=== PATIENT | male | born 1995 | race Caucasian/White ===

== ENCOUNTER 2017-12-09 11:23 | Emergency (ER) | payer OTHER ==
[2017-12-09] MEDS ORDERED: Diphtheria,Pertussis(Acell),Tetanus Vaccine 0.5 ML Syringe IM ONE (11:36)
[2017-12-09] MEDS ORDERED: ceFAZolin 1,000 MG VIAL IM ONE (11:36)
[2017-12-09] MEDS ORDERED: Bacitracin Oint 1 GM U/D Packet TOP ONE (11:37)
[2017-12-09] MEDS ORDERED: Lidocaine 1% 20 ML MDV INJECT ONE (11:39)
--- NOTE | 2017-12-09 11:39 | EDM.PDOC ---
ED HPI GENERAL MEDICAL PROBLEM - General Chief Complaint: Laceration Stated Complaint: PT CUT THE TIP OF FINGER ON LT HAND Time Seen by Provider: 12/09/17 11:26 - History of Present Illness INITIAL COMMENTS - FREE TEXT/NARRATIVE: HISTORY AND PHYSICAL: History of present illness: The patient is a healthy 22-year-old male who is unsure of his last tetanus shot who presents from work after he injured the tip of his left index finger using a sledgehammer. He said he was hitting an area very hard with a sledgehammer and his finger somehow got trapped between another object and the thing he was hitting and it cut the tip of his left index finger. The patient is right-hand dominant and has no other injuries and has pain only to the tip of the finger. Prior to these events he was in his usual state of good health. Patient is able to move the finger but there is discomfort. There is no other injuries to the other fingers or the hand. Review of systems: As per history of present illness and below otherwise all systems reviewed and negative. Past medical history: As per history of present illness and as reviewed below otherwise noncontributory. Surgical history: As per history of present illness and as reviewed below otherwise noncontributory. Social history: No reported history of drug or alcohol abuse. Family history: As per history of present illness and as reviewed below otherwise noncontributory. Physical exam: Gen.: Well-developed well-nourished mildly overweight man who is nontoxic and vital signs have been reviewed by me HEENT: Atraumatic, normocephalic, negative for conjunctival pallor or scleral icterus, mucous membranes moist, throat clear, neck supple, nontender, trachea midline. Lungs: Clear to auscultation, breath sounds equal bilaterally, chest nontender. Heart: S1S2, regular rate and rhythm no overt murmurs Abdomen: Soft, nondistended, nontender. NABS Pelvis: Deferred Genitourinary: Deferred. Rectal: Deferred. Extremities: Atraumatic with full range of motion of all extremities with exception of the left index finger where there is a almost 5.5 cm laceration which is near circumferential of the soft tissue with a small pedicle keeping it attached to the remainder of the digit. The nail bed is intact without any injury or subungual hematoma and the area is tender and swollen. The remainder of the digits on the left hand are without injury. The proximal aspect of the index finger at that PIP and metacarpals are intact and nontender. The patient is able to flex and extend at the distal phalanx. The legs are, negative for cords or calf pain. Neurovascular unremarkable. Neuro: Awake, alert, oriented. Cranial nerves II through XII unremarkable. Cerebellum unremarkable. Motor and sensory unremarkable throughout. Exam nonfocal. Diagnostics: X-ray left index finger Therapeutics: Tdap, ancef, wound care Procedure note: After the wound was irrigated and cleansed by nursing a 1% lidocaine without epinephrine block was placed in a digital fashion. Some local anesthetic was also applied to the wound. The wound was prepped and draped in sterile fashion The wound was explored and no foreign bodies were appreciated and the near amputated tissue was re-attached using a total number of #9 sutures of 4-0 nylon in a simple interrupted fashion. It is noted that some of the soft tissue from underneath the nail came out and was replaced. The patient tolerated the procedure well and bacitracin a tube gauze and a finger splint were applied by nursing. 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 Left 2-Index finger Pain Score (Numeric/FACES): 3 - Related Data Allergies Allergy/AdvReac Type Severity Reaction Status Date / Time No Known Allergies Allergy Verified 12/09/17 11:29 Home Meds: Home Meds . [No Known Home Meds] 12/09/17 [History] Past Medical History - Past Health History Medical/Surgical History: Denies Medical/Surgical History Social & Family History - Family History Family Medical History: Noncontributory - Tobacco Use Smoking Status *Q: Current Every Day Smoker Years of Tobacco use: 6 Packs/Tins Daily: 1 - Caffeine Use Caffeine Use: Reports: Energy Drinks - Recreational Drug Use Recreational Drug Use: No ED ROS GENERAL - Review of Systems Review Of Systems: ROS reveals no pertinent complaints other than HPI. ED EXAM, SKIN/RASH Exam: See Below (see Dictation) Course - Vital Signs Last Recorded V/S: Last Vital Signs Temp 36.3 C 12/09/17 11:26 Pulse 86 12/09/17 11:26 Resp 18 12/09/17 11:26 BP 167/108 H 12/09/17 11:26 Pulse Ox 100 12/09/17 11:26 - Orders/Labs/Meds Orders: Active Orders 24 hr Category Date Time Status Communication Order [RC] STAT Care 12/09/17 11:37 Active Vaccines to be Administered [RC] PER UNIT ROUTINE Care 12/09/17 11:36 Active Fingers Second Digit Lt F1 [CR] Stat Exams 12/09/17 11:37 Taken Acetaminophen/HYDROcodone [Rocky 325-7.5 MG] Med 12/09/17 13:06 Once 1 tab PO ONETIME ONE Medication Orders Hydrocodone Bitart/Acetaminophen (Rocky 325-7.5 Mg) 1 tab PO ONETIME ONE Stop: 12/09/17 13:07 Meds: Medications Generic Name Dose Route Start Last Admin Trade Name Freq PRN Reason Stop Dose Admin Hydrocodone Bitart/Acetaminophen 1 tab 12/09/17 13:06 Rocky 325-7.5 Mg PO 12/09/17 13:07 ONETIME ONE Discontinued Medications Generic Name Dose Route Start Last Admin Trade Name Freq PRN Reason Stop Dose Admin Bacitracin 1 dose 12/09/17 11:37 Bacitracin Oint 1 Gm TOP 12/09/17 11:38 ONETIME ONE Cefazolin Sodium 1,000 mg 12/09/17 11:36 12/09/17 12:23 Ancef IM 12/09/17 11:37 1,000 mg ONETIME ONE Administration Diphtheria/Tetanus/Acell Pertussis 0.5 ml 12/09/17 11:36 12/09/17 12:17 Adacel IM 12/09/17 11:37 0.5 ml .ONCE ONE Administration Sterile Water Confirm 12/09/17 12:07 Sterile Water For Injection Administered 12/09/17 12:08 Dose 20 mls @ as directed .ROUTE .STK-MED ONE Lidocaine HCl 20 ml 12/09/17 11:39 12/09/17 11:46 Xylocaine 1% INJECT 12/09/17 11:40 20 ml ONETIME ONE Administration Sterile Water 2.5 ml 12/09/17 12:23 Sterile Water For Injection INJECT 12/09/17 12:24 ONETIME ONE Departure - Departure Time of Disposition: 13:09 Disposition: Home, Self-Care 01 Condition: Good Clinical Impression: Closed fracture of tuft of distal phalanx of finger Laceration of finger of left hand Qualifiers: Encounter type: initial encounter Finger: index finger Damage to nail status: with damage Foreign body presence: without foreign body Qualified Code(s): S61.311A - Laceration without foreign body of left index finger with damage to nail, initial encounter - Discharge Information Forms: ED Department Discharge Additional Instructions: The following information is given to patients seen in the emergency department who are being discharged to home. This information is to outline your options for follow-up care. We provide all patients seen in our emergency department with a follow-up referral. The need for follow-up, as well as the timing and circumstances, are variable depending upon the specifics of your emergency department visit. If you don't have a primary care physician on staff, we will provide you with a referral. We always advise you to contact your personal physician following an emergency department visit to inform them of the circumstance of the visit and for follow-up with them and/or the need for any referrals to a consulting specialist. The emergency department will also refer you to a specialist when appropriate. This referral assures that you have the opportunity for followup care with a specialist. All of these measure are taken in an effort to provide you with optimal care, which includes your followup. Under all circumstances we always encourage you to contact your private physician who remains a resource for coordinating your care. When calling for followup care, please make the office aware that this follow-up is from your recent emergency room visit. If for any reason you are refused follow-up, please contact the emergency department at and ask to speak to the emergency department charge nurse. [facility] Specialty clinic-[facility] [address] [address] Please keep dressing and splint placed by ER on for the next 24-36 hours and then remove and cleanse with mild soap and water and pat dry. Apply bacitracin or Neosporin and a gauze dressing and replace the splint. Please cleanse the area twice a day. No use of the left hand and finger into your followed up by our hand specialist. Please contact our hand specialist Dr. milton on Monday morning for follow-up appointment. Take antibiotics as directed until finished and use [id number] Tylenol or ibuprofen for pain or stronger pain medications, Rocky, as prescribed. Return to ER as needed and as discussed. The sutures can be removed here in the emergency department 7-[address] Carlton. For the Dr. Carlton see you as we discussed in the ER, this tissue is very tenuous and may not survive and the finger area may need to be revised. - My Orders Last 24 Hours: My Active Orders 12/09/17 11:36 Vaccines to be Administered [RC] PER UNIT ROUTINE 12/09/17 11:37 Communication Order [RC] STAT Fingers Second Digit Lt F1 [CR] Stat 12/09/17 13:06 Acetaminophen/HYDROcodone [Rocky 325-7.5 MG] 1 tab PO ONETIME ONE - Assessment/Plan Last 24 Hours: My Active Orders 12/09/17 11:36 Vaccines to be Administered [RC] PER UNIT ROUTINE 12/09/17 11:37 Communication Order [RC] STAT Fingers Second Digit Lt F1 [CR] Stat 12/09/17 13:06 Acetaminophen/HYDROcodone [Rocky 325-7.5 MG] 1 tab PO ONETIME ONE
[2017-12-09] MEDS ORDERED: Water For Injection, Sterile 20 ML ONE (12:07)
[2017-12-09] MEDS ORDERED: Water For Injection, Sterile 50 ML SDV INJECT ONE (12:23)
[2017-12-09] MEDS ORDERED: Acetaminophen/HYDROcodone 325-7.5 MG Tab PO ONE (13:06)
--- NOTE | 2017-12-11 05:58 | CR ---
EXAM DATE: 12/09/17 PATIENT'S AGE: 22 Patient: DIMA RIDDLE Facility: [place], [place] Site . Site : 1996 Study: XRay Extremity Left [id number]/3/2018 12:04:08 PM Ordering Physician: Jamari Luong Final Report: 3 VIEWS left hand 2nd digit. INDICATION: Injury. IMPRESSION: Soft tissue injury laceration or partial amputation. Small fracture through the tuft of the distal phalanx along the ulnar aspect. Displacement of the avulsion fragment with the area of partially amputated or avulsed soft tissue. Joint spaces unremarkable. Dictated by Helder Graham MD @ Dec 09 2017 12:28PM (Electronic Signature) Report Signed by Proxy. SHANDA
== END 2017-12-09 13:32 | disposition home or self-care (01) ==
LOC: MW.ED 11:23
DX: S62.631A Displaced fracture of distal phalanx of left index finger, initial encounter for closed fracture (principal); S61.311A Laceration without foreign body of left index finger with damage to nail, initial encounter; F17.210 Nicotine dependence, cigarettes, uncomplicated; W27.0XXA Contact with workbench tool, initial encounter; Z23 Encounter for immunization
CPT/HCPCS: 12002; 73140; 90471; 90715; 96372; 99283; A9270; J0690